=== PATIENT | female | born 1985 | race African-American/Black ===

== ENCOUNTER 2019-03-14 13:41 | Emergency (ER) | payer BC, OTHER ==
[2019-03-14 13:49] VITALS: BP 111/69
--- NOTE | 2019-03-14 14:06 | Emergency Department Report ---
ED General Adult HPI - General Chief complaint: Medical Clearance Stated complaint: NEEDLE STICK Time Seen by Provider: 03/14/19 14:01 Source: patient Mode of arrival: Ambulatory Limitations: No Limitations - History of Present Illness Initial comments: Patient is a 34-year-old female that presents emergency room with complaints of a needlestick at work. Patient states she was doing a procedure in her office and a scalpel went into her left thumb. Patient's tetanus is up-to-date. Patient wants the post exposure prophylaxis. -: Sudden Improves with: none Worsens with: none Associated Symptoms: denies other symptoms - Related Data Previous Rx's Medication Instructions Recorded Last Taken Type Dolutegravir [Tivicay] 50 mg PO DAILY 30 Days #30 tablet 03/14/19 Unknown Rx Emtricitabine/Tenofovir (Tdf) 2 each PO DAILY 30 Days #60 tablet 03/14/19 Unknown Rx [Truvada 100 mg-150 mg Tablet] Allergies Allergy/AdvReac Type Severity Reaction Status Date / Time No Known Allergies Allergy Unverified 03/14/19 13:49 ED Review of Systems ROS: Stated complaint: NEEDLE STICK Other details as noted in HPI Comment: All other systems reviewed and negative ED Past Medical Hx - Past Medical History Previous Medical History?: No - Surgical History Past Surgical History?: No - Family History Family history: no significant - Social History Smoking Status: Never Smoker Substance Use Type: None - Medications Home Medications: Home Medications Medication Instructions Recorded Confirmed Last Taken Type Dolutegravir [Tivicay] 50 mg PO DAILY 30 Days #30 tablet 03/14/19 Unknown Rx Emtricitabine/Tenofovir (Tdf) 2 each PO DAILY 30 Days #60 tablet 03/14/19 Unknown Rx [Truvada 100 mg-150 mg Tablet] ED Physical Exam - General Limitations: No Limitations General appearance: alert, in no apparent distress - Head Head exam: Present: atraumatic, normocephalic - Eye Eye exam: Present: normal appearance - ENT ENT exam: Present: mucous membranes moist - Neck Neck exam: Present: normal inspection - Respiratory Respiratory exam: Present: normal lung sounds bilaterally. Absent: respiratory distress - Cardiovascular Cardiovascular Exam: Present: regular rate, normal rhythm. Absent: systolic murmur, diastolic murmur, rubs, gallop - GI/Abdominal GI/Abdominal exam: Present: soft, normal bowel sounds - Extremities Exam Extremities exam: Present: normal inspection - Back Exam Back exam: Present: normal inspection - Neurological Exam Neurological exam: Present: alert, oriented X3 - Psychiatric Psychiatric exam: Present: normal affect, normal mood - Skin Skin exam: Present: warm, dry, normal color, other (small puncture wound noted to the left thumb. Bleeding controlled.). Absent: rash ED Course Vital Signs 03/14/19 13:47 Pulse Rate 87 Respiratory 16 Rate Blood Pressure 111/69 O2 Sat by Pulse 98 Oximetry - Reevaluation(s) Reevaluation #1: I discussed plan of care with patient. Patient agrees with plan of care. Patient will be discharged home. Patient stable at discharge. Patient given discharge instructions. 03/14/19 14:30 - Consultations Consultation #1: Discussed case with Dr. Alvarado, infectious disease. Dr. Alvarado's recommendations received. 03/14/19 14:01 ED Medical Decision Making - Lab Data Result diagrams: 03/14/19 14:13 03/14/19 14:13 - Medical Decision Making Patient is a 34-year-old female that presents emergency room with a puncture wound secondary to a scalpel while doing a procedure in her office. Patient is a local general surgeon. The scalpel is from a known patient of the general surgeon and labs were sent on her patient from her office. Patient presents to the ER for postexposure prophylaxis. I discussed this case with infectious disease and recommendations received for HIV postexposure prophylaxis. Patient given prescription for the post exposure prophylaxis. Patient's labs done in the emergency room unremarkable except for mild elevated sugar. - Differential Diagnosis work-related injury. Puncture wound. Post exposure prophylaxis. Critical care attestation.: If time is entered above; I have spent that time in minutes in the direct care of this critically ill patient, excluding procedure time. ED Disposition Clinical Impression: Puncture wound, Work related injury, Need for prophylactic measure Disposition: DC-01 TO HOME OR SELFCARE Is pt being admited?: No Does the pt Need Aspirin: No Condition: Stable Instructions: Postexposure Prophylaxis (ED) Additional Instructions: Patient to follow up with primary care in 2-3 days. Patient to return to ER if condition worsens. Patient to follow up with infectious disease in 24 hours.. Patient to follow-up with employee health as soon as possible.. Patient to take meds as directed. Prescriptions: Dolutegravir [Tivicay] 50 mg PO DAILY 30 Days #30 tablet Emtricitabine/Tenofovir (Tdf) [Truvada 100 mg-150 mg Tablet] 2 each PO DAILY 30 Days #60 tablet Referrals: MICHELLE BUSTAMANTE MD [Staff Physician] - 24 Hours Time of Disposition: 14:29
[2019-03-14 14:32] LABS: Bilirubin,Urine NEG (Negative); Blood,Urine NEG (Negative); Color,Urine Yellow (Yellow); Hyaline Casts,Urine 1 /LPF; Mucus,Urine FEW /HPF; Protein,Urine <15 mg/dL mg/dL (Negative); WBC,Urine < 1.0 /HPF (0.0-6.0)
[2019-03-14 14:33] LABS: HCG Qualitative,Urine Negative (Negative)
[2019-03-14 14:33] LABS: Basophils % (Auto) 0.5 % (0.0-1.8); Eosinophils # (Auto) 0.1 K/mm3 (0.0-0.4); Eosinophils % (Auto) 1.4 % (0.0-4.3); Hemoglobin 13.7 gm/dl (10.1-14.3); Lymphocytes # (Auto) 1.8 K/mm3 (1.2-5.4); Lymphocytes % (Auto) 23.4 % (13.4-35.0); Mean Corpuscular HGB Conc 33 % (30-34); Mean Corpuscular Volume 86 fl (79-97); Monocytes # (Auto) 0.6 K/mm3 (0.0-0.8); Monocytes % (Auto) 7.6 % (0.0-7.3); Platelet Count 218 K/mm3 (140-440); Red Blood Count 4.78 M/mm3 (3.65-5.03); Red Cell Distribution Width 12.3 % (13.2-15.2)
[2019-03-14 14:57] LABS: Alanine Aminotransferase 12 units/L (7-56); Albumin 5.1 g/dL (3.9-5); BUN/Creatinine Ratio 24; Blood Urea Nitrogen 19 mg/dL (7-17); Calcium 9.9 mg/dL (8.4-10.2); Hemolysis Index 9
[2019-03-14 16:56] LABS: Hepatitis B Surface Antigen Non-Reactive (Negative); Hepatitis C Virus Antibody Non-Reactive (NonReactive)
[2019-03-14] MEDS ORDERED: DOLUTEGRAVIR 50 MG TAB PO SCH (18:00)
[2019-03-14] MEDS ORDERED: TENOFOVIR 300 MG TAB PO SCH (18:00)
[2019-03-14] MEDS ORDERED: EMTRICITABINE 200 MG CAP PO SCH (18:00)
[2019-03-17 06:40] LABS: HIV-1 Antibody Differentiation SEE SCANNED RESULT; HIV-2 Antibody Differentiation SEE SCANNED RESULT
== END 2019-03-14 14:45 | disposition home or self-care (01) ==
LOC: ED 13:41
DX: S61.032A Puncture wound without foreign body of left thumb without damage to nail, initial encounter (principal); Z29.9 Encounter for prophylactic measures, unspecified; W22.8XXA Striking against or struck by other objects, initial encounter; Y93.89 Activity, other specified; Y92.69 Other specified industrial and construction area as the place of occurrence of the external cause; Y99.0 Civilian activity done for income or pay
CPT/HCPCS: 36415; 80053; 80074; 81001; 81025; 85025; 86689; 87086

== ENCOUNTER 2020-10-18 08:20 | Outpatient (CLI) | payer BC, OTHER ==
[2020-10-18 08:51] LABS: Basophils % (Auto) 0.5 % (0.0-1.8); Eosinophils # (Auto) 0.1 K/mm3 (0.0-0.4); Eosinophils % (Auto) 1.7 % (0.0-4.3); Hematocrit 37.7 % (30.3-42.9); Hemoglobin 12.7 gm/dl (10.1-14.3); Lymphocytes # (Auto) 1.3 K/mm3 (1.2-5.4); Mean Corpuscular HGB Conc 34 % (30-34); Mean Corpuscular Volume 87 fl (79-97); Monocytes # (Auto) 0.4 K/mm3 (0.0-0.8); Monocytes % (Auto) 8.3 % (0.0-7.3); Platelet Count 204 K/mm3 (140-440); Red Blood Count 4.32 M/mm3 (3.65-5.03); Red Cell Distribution Width 12.6 % (13.2-15.2)
[2020-10-18 09:13] LABS: Alanine Aminotransferase 11 units/L (7-56); Albumin 4.7 g/dL (3.9-5); BUN/Creatinine Ratio 19; Blood Urea Nitrogen 15 mg/dL (7-17); Calcium 9.2 mg/dL (8.4-10.2); Chol/HDL Ratio 2.84 %; HDL Cholesterol 52 mg/dL (40-59); Hemolysis Index 0; LDL Cholesterol,Direct 94 mg/dL (50-130)
[2020-10-21 15:01] LABS: Vitamin D, 25-OH, D2 <4 ng/mL
== END 2020-10-18 08:21 | disposition home or self-care (01) ==
LOC: LAB 08:20 → EDSTATUS 08:29
PROVIDERS: ATTEND Internal Medicine
DX: Z13.220 Encounter for screening for lipoid disorders (principal); Z13.29 Encounter for screening for other suspected endocrine disorder; Z13.21 Encounter for screening for nutritional disorder; Z00.00 Encounter for general adult medical examination without abnormal findings; Z13.1 Encounter for screening for diabetes mellitus
CPT/HCPCS: 36415; 80053; 80061; 82306; 82607; 83036; 84443; 85025